=== PATIENT | female | born 1980 | race Caucasian/White ===

== ENCOUNTER 2017-12-01 20:20 | Emergency (ER) | payer OTHER, MEDICAID ==
[~2017-12-01] VITALS: Ht 162.6 cm; Wt 81.7 kg
[~2017-12-01 20:20] MED LIST: ZOFRAN ODT4 MG PO
[2017-12-01] MEDS ORDERED: BUSPIRONE HCL10 MG PO (20:32)
[2017-12-01] MEDS ORDERED: HYDROXYZINE HCL25 M1 PO (20:32)
[2017-12-01] MEDS ORDERED: SERTRALINE HCL50 MG PO (20:32)
[2017-12-01] MEDS ORDERED: TRAZODONE HCL50 MG PO (20:32)
[2017-12-01] MEDS ORDERED: NORCO 7.5-3251 EACH PO (21:06)
[2017-12-01 22:00] VITALS: BP 126/78
== END 2017-12-01 22:00 | disposition home or self-care (01) ==
LOC: M.ERS 20:20
DX: S62.396A Other fracture of fifth metacarpal bone, right hand, initial encounter for closed fracture (principal); J45.909 Unspecified asthma, uncomplicated; F17.210 Nicotine dependence, cigarettes, uncomplicated; Z90.49 Acquired absence of other specified parts of digestive tract; Z88.1 Allergy status to other antibiotic agents; Z88.0 Allergy status to penicillin; Z88.8 Allergy status to other drugs, medicaments and biological substances; W22.8XXA Striking against or struck by other objects, initial encounter; Y93.89 Activity, other specified; Y92.89 Other specified places as the place of occurrence of the external cause; Y99.8 Other external cause status

== ENCOUNTER 2018-12-19 08:31 | Emergency (ER) | payer OTHER, MEDICAID ==
[~2018-12-19] VITALS: Ht 162.6 cm; Wt 90.7 kg
[~2018-12-19 08:31] MED LIST changes: +BUSPIRONE HCL10 MG PO; +HYDROXYZINE HCL25 M1 PO; +NORCO 7.5-3251 EACH PO; +SERTRALINE HCL50 MG PO; +TRAZODONE HCL50 MG PO
[2018-12-19] MEDS ORDERED: ATIVAN0.5 M1 PO (08:54)
[2018-12-19] MEDS ORDERED: CELEXA10 MG PO (08:55)
[2018-12-19 09:03] LABS: ABSOLUTE BASOPHILS 0.1 thou/uL (0.0-0.2); ABSOLUTE EOSINOPHILS 0.1 thou/uL (0.0-0.7); ABSOLUTE LYMPHOCYTES 3.7 thou/uL (0.8-5.3); ABSOLUTE MONOCYTES 0.5 thou/uL (0.0-1.2); ABSOLUTE NEUTROPHILS 9.4 thou/uL (1.6-8.1); BASOPHILS 0.9 %; HEMATOCRIT 45.2 % (37.0-47.0); HEMOGLOBIN 15.2 gm/dL (12.0-15.0); LYMPHOCYTES 26.5 %; MCH 29.8 pg (26.0-34.0); MCHC 33.7 g/dL (28.0-37.0); MCV 88.5 fL (80.0-100.0); MONOCYTES 3.9 %; MPV 7.7 fl. (7.2-11.1); NUCLEATED RBCS 0 /100WBC; PLATELET COUNT* 373 thou/uL (150-400); POLYS 67.7 %; RDW-CV 13.8 % (10.5-14.5); WBC 13.9 thou/uL (4.0-11.0)
[2018-12-19 09:22] LABS: CALCIUM 8.8 mg/dL (8.5-10.1); POTASSIUM 3.9 mmol/L (3.5-5.1)
[2018-12-19 09:25] LABS: ACETAMINOPHEN < 2 ug/mL (10-30); ALCOHOL < 10 mg/dL (<10)
[2018-12-19 09:27] LABS: ALBUMIN 3.7 g/dL (3.4-5.0); TOTAL BILIRUBIN 0.4 mg/dL (<0.1-1.0); TOTAL PROTEIN 7.6 g/dL (6.4-8.2)
[2018-12-19 10:09] LABS: URINE BILIRUBIN NEGATIVE (Negative); URINE BLOOD 3+ (Negative); URINE CLARITY CLEAR; URINE COLOR YELLOW; URINE GLUCOSE-RANDOM NEGATIVE (Negative); URINE KETONES NEGATIVE (Negative); URINE LEUKOCYTES-REFLEX NEGATIVE (Negative); URINE NITRITE-REFLEX NEGATIVE (Negative); URINE PROTEIN TRACE (Negative); URINE SPECIFIC GRAVITY >= 1.030 (1.005-1.030); URINE UROBILINOGEN 0.2 E.U./dl (0.2-1.0)
[2018-12-19 10:16] LABS: AMP/METHAMP POSITIVE (Negative); BARBITURATES Negative (Negative); BENZODIAZEPINES Negative (Negative); COCAINE Negative (Negative); METHADONE Negative (Negative); OPIATES Negative (Negative); PCP Negative (Negative); THC Negative (Negative)
[2018-12-19 10:17] LABS: BACTERIA-REFLEX None Seen /HPF (None Seen); CASTS None Seen /LPF (None Seen); CRYSTALS None Seen /LPF (None Seen); MUCUS None Seen strn/LPF (None Seen); SQUAMOUS 4-10 Moderate /LPF (0-3); URINE RBC 3-10 Few /HPF (0-2); URINE WBC-REFLEX 0-5 Rare /HPF (0-5)
[2018-12-19 15:10] VITALS: BP 129/74
== END 2018-12-19 15:18 ==
LOC: M.ERS 08:31
PROVIDERS: Emergency Medicine Emergency Medical Services
DX: R45.851 Suicidal ideations (principal); J45.909 Unspecified asthma, uncomplicated; F17.210 Nicotine dependence, cigarettes, uncomplicated; Z88.0 Allergy status to penicillin; Z88.1 Allergy status to other antibiotic agents; Z88.8 Allergy status to other drugs, medicaments and biological substances; Z98.890 Other specified postprocedural states; Z79.899 Other long term (current) drug therapy

== ENCOUNTER 2020-07-15 10:49 | Emergency (ER) | payer OTHER, MEDICAID ==
[~2020-07-15] VITALS: Ht 162.6 cm; Wt 81.7 kg
[~2020-07-15 10:49] MED LIST changes: +ATIVAN0.5 M1 PO; +CELEXA10 MG PO
[2020-07-15] MEDS ORDERED: CLINDAMYCIN HC300 MG PO (11:05)
[2020-07-15 11:10] VITALS: BP 149/87
== END 2020-07-15 11:11 | disposition home or self-care (01) ==
LOC: M.ERS 10:49
DX: K04.7 Periapical abscess without sinus (principal); J32.9 Chronic sinusitis, unspecified; J45.909 Unspecified asthma, uncomplicated; F17.210 Nicotine dependence, cigarettes, uncomplicated; Z88.0 Allergy status to penicillin; Z88.1 Allergy status to other antibiotic agents; Z90.49 Acquired absence of other specified parts of digestive tract